=== PATIENT | male | born 1945 | race Caucasian/White ===

== ENCOUNTER 2019-10-16 10:25 | Outpatient (CLI) | payer MEDICARE, BC ==
[~2019-10-16] VITALS: Ht 182.9 cm; Wt 83.2 kg
[2019-10-16 11:48] VITALS: BP 107/50; Ht 182.9 cm; Wt 83.2 kg
[2019-10-16 12:18] LABS: BASOPHILS 0.3 % (0-2); EOSINOPHILS 0.8 % (0-7); HEMATOCRIT 32.6 % (42.0-54.0); HEMOGLOBIN 11.2 g/dL (13.5-17.5); LYMPHOCYTES 26.8 % (15-50); MCH 34.9 pg (26.0-34.0); MCHC 34.4 g/dL (31.0-37.0); MCV 101.6 fL (80.0-100.0); MEAN PLATELET VOLUME 10.5 fL (7.4-10.4); MONOCYTES 19.3 % (2-11); NEUTROPHILS 52.8 % (40-80); PLATELET COUNT 98 10x3/uL (130-400); RBC 3.21 10x6/uL (4.20-6.10); RDW 19.8 % (11.5-14.5); WBC 3.8 10x3/uL (4.8-10.8)
[2019-10-16 12:37] LABS: ALBUMIN 2.3 g/dL (3.4-5.0); ANION GAP 8.3 mmol/L (8-16); BILIRUBIN - TOTAL 1.85 mg/dL (0.2-1.3); CALCIUM 8.3 mg/dL (8.5-10.1); CARBON DIOXIDE 28.3 mmol/L (21.0-32.0); CREATININE - SERUM 1.5 mg/dL (0.6-1.3); POTASSIUM - SERUM 4.6 mmol/L (3.5-5.1); PROTEIN - SERUM 5.4 g/dL (6.4-8.2)
[2019-10-16 12:39] LABS: PLATELET ESTIMATE DECREASED
[2019-10-16 12:44] LABS: APTT 43.7 SECONDS (22.8-39.4); INR 1.52 (0.85-1.17); PROTIME 18.2 SECONDS (11.6-15.0)
== END 2019-10-16 15:40 ==
LOC: D.SP 10:25 → D.RAD 13:00 → D.SP 15:40
PROVIDERS: Radiology Diagnostic Radiology; ATTEND Internal Medicine Geriatric Medicine
DX: R18.8 Other ascites (principal)